=== PATIENT | female | born 1980 | race Caucasian/White ===

== ENCOUNTER → 2020-08-16 10:55 | Outpatient (BNVA) | payer MEDICAID, SELFPAY | PROVIDERS: PCP Nurse Practitioner Family; Referring Provider Nurse Practitioner Family; Visit Provider Surgery | DX: D17.24 Benign lipomatous neoplasm of skin and subcutaneous tissue of left leg (principal) | CPT/HCPCS: 99212 ==

== ENCOUNTER 2020-08-22 10:30 | Outpatient (REF) | payer MEDICAID, SELFPAY ==
[2020-08-22 10:38] VITALS: BP 133/76; PULSE 84; RESP 16; TEMP 36.2; O2SAT 99
[2020-08-22 10:39] VITALS: BMI 40.2
--- NOTE | 2020-08-22 11:12 | PM.OP ---
Brief Operative Note Date of Service: 08/22/20 Pre-op diagnosis: Lipoma posterior left leg Post-op diagnosis: same Procedure: Excision of lipoma left leg Surgeon: Eric Aguiar MD Anesthesia: local Estimated blood loss (mL): 1 Pathology: other (lipoma posterior left leg) Condition: stable Disposition: other (home)
[2020-08-22 12:45] VITALS: BP 130/81; PULSE 82; RESP 16; O2SAT 99
--- NOTE | 2020-08-26 23:15 | W.PM.OPN ---
Operative Note Operative Note Date of Service: 08/22/20 Narrative: Preoperative diagnose: Lipoma posterior left thigh Postop diagnosis: same Procedure: Excision of lipoma posterior left thigh Surgeon: Eric Aguiar MD Anesthesia: Local Findings: 2 cm lipoma structure in the posterior left thigh Specimen: Lipoma left thigh Complications: None Estimated blood loss: 1 mL Procedure details: Patient was brought to the minor surgery suite placed in a prone position. The site of surgery was confirmed in the left posterior thigh and informed consent was assured. The skin was prepped with Betadine and draped in sterile fashion. Local anesthesia consisting of lidocaine 1% was infiltrated around the lesion in the posterior left thigh. Elliptical incision was made around the skin lesion the lesion excised down into the subcutaneous tissue. Hemostasis was maintained using light pressure. Skin was then closed using interrupted 4-0 nylon sutures. Sterile dressings consisting 3 x 3 gauze and paper tape was then applied. The patient tolerated the procedure well was discharged to home stable condition.
== END 2020-08-22 10:31 | disposition home or self-care (01) ==
LOC: HO.MS 10:30
PROVIDERS: PCP Nurse Practitioner Family; Visit Provider Surgery
PROC: (CPT 11402; principal; 2020-08-22 11:00)
DX: D17.24 Benign lipomatous neoplasm of skin and subcutaneous tissue of left leg (principal); I10 Essential (primary) hypertension; R73.03 Prediabetes; Z79.899 Other long term (current) drug therapy
CPT/HCPCS: 11402; 88304

== ENCOUNTER → 2020-08-29 14:26 | Outpatient (BNVA) | payer MEDICAID, SELFPAY | PROVIDERS: PCP Nurse Practitioner Family; Referring Provider Nurse Practitioner Family; Visit Provider Surgery | DX: Z09 Encounter for follow-up examination after completed treatment for conditions other than malignant neoplasm (principal) | CPT/HCPCS: 99212 ==

== ENCOUNTER 2022-07-01 13:41 | Outpatient (REF) | payer MEDICAID, SELFPAY ==
--- NOTE | ~2022-07-01 | MM_ITS ---
EXAMINATION: MM DIAGNOSTIC DIGITAL BREAST TOMOSYNTHESIS, BILATERAL US DIAGNOSTIC ULTRASOUND BREAST, BILATERAL CLINICAL INFORMATION: Due for yearly. Patient notes chronic bilateral round nipple discharge, drops with squeezing. No spontaneous discharge. No palpable mass. No known family history breast cancer. The lifetime risk of breast cancer based on the Tyrer-Cuzick Model is 7%. COMPARISON: Baseline diagnostic mammography with bilateral ultrasound 03/13/2020. TECHNIQUE: Digital breast tomosynthesis is performed in both the craniocaudal and mediolateral oblique views along with computer-aided detection (CAD). Synthesized 2D images are generated from the tomosynthesis. Ultrasound of each breast is performed using grayscale imaging and color Doppler without and with harmonics. Bilateral retroareolar and periareolar imaging is performed. Additional imaging posterior inferior left breast also performed. FINDINGS: There are scattered areas of fibroglandular density (ACR BI-RADS breast composition Category b). Breast tissue composition borders on heterogeneously dense. Parenchymal pattern is similar to prior exam. There is no significant mass or architectural abnormality. There are scattered stable fine round calcifications similar in number and distribution. The axilla and skin contours are unremarkable. There is no interval duct ectasia. Left breast has macrolobulated nodule posterior central 6:00 position slightly more prominent when compared with prior study. Ultrasound bilateral retroareolar and periareolar region show no cystic or solid mass or architectural abnormality. No focal duct ectasia. No skin thickening or edema tracking in soft tissue planes. Additional ultrasound posterior inferior left breast demonstrates grouping of simple cyst at site of macrolobulated nodularity with overall size approximately 1.5 x 0.6 x 0.9 cm. There is increased through-transmission of sound noted during real-time imaging. No associated color flow. Results are discussed with the patient at time of visit. MM/MM tomosynthesis diagnostic BI IMPRESSION: -No mammographic or ultrasound evidence of malignancy. -Benign grouped simple cysts posterior central left breast, 1.5 cm. ASSESSMENT: BI-RADS 2: Benign RECOMMENDATION: 1. Patient's bilateral chronic brown nipple discharge with squeezing should be managed based on the clinical impression. Consider laboratories for possible systemic hormonal etiology. 2. Otherwise, routine annual screening mammography. This patient's information was entered into a reminder system with a target due date for their next mammogram.
== END 2022-07-01 13:42 | disposition home or self-care (01) ==
LOC: HO.MAMMO 13:41
PROVIDERS: PCP Registered Nurse Community Health; Visit Provider Registered Nurse Community Health
DX: N64.52 Nipple discharge (principal)
CPT/HCPCS: 76642; 77062; 77066

== ENCOUNTER 2024-04-10 14:37 | Outpatient (REF) | payer MEDICAID, SELFPAY ==
[2024-04-12 19:18] LABS: TS Negative Control Passed; TS Panel A 1; TS Panel B 0; TS Positive Control Passed; TSpotTB Negative (Negative)
== END 2024-04-10 14:38 | disposition home or self-care (01) ==
LOC: HO.HHCL 14:37
PROVIDERS: Visit Provider Nurse Practitioner Family
DX: Z00.00 Encounter for general adult medical examination without abnormal findings (principal)
CPT/HCPCS: 36415; 86481

== ENCOUNTER 2024-09-29 15:19 | Outpatient (REF) | payer SELFPAY ==
[2024-09-29 16:24] LABS: Anion Gap 12 (12-20); Blood Urea Nitrogen 11 mg/dL (9-16); Calcium 9.1 mg/dL (8.4-10.2); Carbon Dioxide 29 mmol/L (22-29); Chloride 101 mmol/L (96-108); Estimated Glomerular Filt Rate > 60; Glucose Random 100 mg/dL (60-115); Potassium 3.3 mmol/L (3.3-5.1); Sodium 139 mmol/L (135-145)
== END 2024-09-29 15:20 | disposition home or self-care (01) ==
LOC: HO.HHCL 15:19
PROVIDERS: Visit Provider Nurse Practitioner
DX: I10 Essential (primary) hypertension (principal)
CPT/HCPCS: 36415; 80048

== ENCOUNTER 2025-06-04 12:11 | Outpatient (REF) | payer MEDICAID, SELFPAY ==
--- OUTSIDE RECORDS SUMMARY | 2025-06-04 13:30 | XMS_ITS | Encounter Summary ---
Author Organization [employer] Address [address] [place] [id number] Care Team Providers Care Bakery Technician Name Role Phone Maria Elena Howard Primary Care Provider [phone] Suzy Guillen NP Primary Care Provider [phone] Reason for Visit * Reason Onset Date Comments Appointment Request 04/28/2024 Encounter Details Date Type Department Care Team ([facility] st Contact Info) Description 04/28/2024 Telephone [facility] [address], [place] [phone] Maria Elena Howard FNP [address], [place] [phone] Appointment Request Social History Tobacco Use Types Packs/Day Years Used Date Smoking Tobacco: Never Passive Smoke Exposure: Never Smokeless Tobacco: Never Alcohol Use Standard Drinks/Week Comments Not Currently 0 (1 standard drink = 0.6 oz pur e alcohol) Depression Answer Date Recorded Patient Health Questionnaire-9 Score 2 01/26/2024 Patient Health Questionnaire-9 Score 2 01/26/2024 Last PHQ-9: Questionnaire Data Not on file 0 01/26/2024 Housing Stability Answer Date Recorded What is your housing situation today? I have tyler reid 01/18/[address] you li ve. Do you have problems with any of the following? None of the above 01/18/2024 Food Insecurity Answer Date Recorded Within the past 12 months, y ou worried that your food would run out before you got money to buy more: Never True 01/18/2024 Within the past 12 months,th e food you bought just didn't last and you didn't have enough money to get more: Never True 06/2024 Transportation Answer Date Recorded In the past 12 months, has l ack of transportation kept you from medical appts, meetings, work or from getting things needed for daily living? No 01/18/2024 Utilities Answer Date Recorded In the past 12 months, has t he electric, gas, oil or water company threatened to shut off services in your home? No 01/18/2024 Depression Answer Date Recorded Patient Health Questionnaire-2 Score 0 01/26/2024 Comments No Sex and Gender Information Value Date Recorded Sex Assigned at Female 08/10/2022 10:14 AM EDT Legal Sex Female 10:14 AM EDT Gender Identity Female 08/10/2022 10:14 AM EDT Sexual Orientation Straight 08/10/2022 10 :14 AM EDT documented as of this encounter Miscellaneous Notes * Telephone Encounter - Lonny Goldberg - 04/28/2024 4:16 PM EDT Tc from pt is requesting to reschedule PE for work 05/05. [employer] Professional attempted to schedule but found no availability. If any questions please contact pt at [phone]. Syriac Speaker. documented in this encounter Plan of Treatment Upcoming Encounters Date Type Department Care Team (Late st Contact Info) Description 07/20/2025 10:15 AM EDT Office Visit [facility] [address] [place] [address] Suzy Guillen NP [address] [place] [address] documented as of this encounter Visit Diagnoses Not on filedocumented in this encounter Additional Health Concerns Assessment Noted Time PHQ-9 Depression Total Score: 2 01/26/20 24 3:57 PM EDT documented as of this encounter Care Teams Bakery Technician Relationship Specialty Start Date End Date Maria Elena Howard FNP [address] [place] [address] PCP - General Family Medicine 07/28/22 06/13/24 Suzy Guillen NP [address] [place] [id number] PCP - General Family Medicine 06/14/24 documented as of this encounter
--- OUTSIDE RECORDS SUMMARY | 2025-06-04 13:30 | XMS_ITS | Clinical Summary ---
Author Organization [facility] [place] [address] Phone Care Team Providers Care Weigher Bulker Name Role Phone Physician, Pcp Unknown Primary Care Provider Mary vailable Allergies No known active allergies Medications benzonatate (TESSALON) 100 mg capsule Take 1 capsule (100 mg total) by mouth 3 (three) times a day if needed for cough. Do not crush or chew. 12 capsule 10/16/2024 Active guaiFENesin (MUCINEX) 600 mg 12 hr tablet Take 2 tablets (1,200 mg total) by mouth 2 (two) times a day. Do not crush, chew, or split. 16 each 10/16/2024 Active Active Problems No known active problems Medical History Medical History Date Comments Hypertension Diabetes mellitus ([facility] V24, [facility] V28) Social History Tobacco Use Types Packs/Day Years Used Date Smoking Tobacco: Never Assessed Comments Unknown Sex and Gender Information Value Date Recorded Sex Assigned at Not on file Legal Sex Female 3:58 AM EST Gender Identity Not on file Sexual Orientation Not on file Obstetrics History Last Filed Vital Signs Vital Sign Reading Time Taken Comments Blood Pressure 126/83 10/15/2024 9:09 PM EST Pulse 107 10/15/2024 9:09 PM EST Temperature 37.5 C (99.5 F) 10/15/2024 9:09 PM EST Respiratory Rate 18 10/15/2024 9:09 PM EST Oxygen Saturation 95% 10/15/2024 9:09 PM EST Inhaled Oxygen Concentration - - Weight 102 kg (225 lb) 10/15/2024 2:57 PM EST Height 157.5 cm (5' 2 ) 10/15/2024 2:57 PM EST Body Mass Index 41.15 10/15/2024 2:57 PM EST Plan of Treatment Health Maintenance Due Date Last Done Comments IPV Vaccines (5 of 5 - 5-dose series) 1983 04/05/1981, 04/03/1981, 01/27/1980, Additional history exists Pneumococcal Vaccine: Pediatrics (0 to 5 Years) and At-Risk Patients (6 to 49 Years) (1 of 2 - PCV) 1998 Cervical Cancer Screening: Pap Smear 2000 Hepatitis B Vaccines (3 of 3 - 3-dose series) 09/24/2000 07/30/2000, 09/23/1998, 08/30/1997 Colorectal Cancer Screening: Colonoscopy 09/13/2022 HIV Screening 09/13/2022 Hepatitis C Screening 09/13/2022 Social Influencers of Health Screening 09/13/2022 DTaP,Tdap,and Td Vaccines (9 - Td or Tdap) 11/15/2022 11/15/2012, 04/29/2006, 06/26/1996, Additional history exists COVID-19 Vaccine ( season) 2024 02/05/2021, 01/08/2021 Breast Cancer Screening 07/01/2024 07/01/2022 Depression Screening 10/11/2024 Influenza Vaccine (#1) 2025 , 08/07/2022, 12/11/2019, Additional history exists Hypertension/CHF/CAD Annual BMP Blood Test 10/15/2025 10/15/2024, 09/29/2024 Cholesterol Screening (Lipid Panel) 01/06/2028 01/05/2023 MMR Vaccines Completed 12/10/1992, 08/24/1980 HIB Vaccines Aged Out No longer eligi ble based on patient's age to complete this topic HPV Vaccines Aged Out No longer eligi ble based on patient's age to complete this topic Hepatitis A Vaccines Aged Out No long er eligible based on patient's age to complete this topic Meningococcal ACWY Vaccine Aged Out N o longer eligible based on patient's age to complete this topic Meningococcal B Vaccine Aged Out No l onger eligible based on patient's age to complete this topic RSV Immunization Patients Under 20 months Aged Out No longer eligible based on patient's age to complete this topic Varicella Vaccines Aged Out No longer eligible based on patient's age to complete this topic Procedures Procedure Name Priority Date/Time Associated Diagnosis Comments COMPREHENSIVE METABOLIC PANEL STAT 10/15/2024 2:52 PM EST from Last 3 Months or Most Recently Relevant to Health Maintenance Results * (ABNORMAL) Comprehensive metabolic panel (10/15/2024 2:52 PM EST) Sodium 136 133 - 145 mmol/L LAB CHEMISTRY METHOD 10/15/2024 3:[address] [facility] Potassium 3.9 3.5 - 5.5 mmol/L LAB CHEMISTRY METHOD 10/15/2024 3:[address] [facility] Chloride 102 96 - 110 mmol/L LAB CHEMISTRY METHOD 10/15/2024 3:[address] [facility] CO2 28 21 - 32 mmol/L LAB CHEMISTRY METHOD 10/15/2024 3:[address] [facility] Anion Gap 6 3 - 11 LAB CHEMISTRY METHOD 10/15/2024 3:[address] [facility] Glucose 105(H) 70 - 100 mg/dL LAB CHEMISTRY METHOD 10/15/2024 3:[address] [facility] BUN 8 5 - 25 mg/dL LAB CHEMISTRY METHOD 10/15/2024 3:[address] [facility] Creatinine 0.62 0.50 - 1.10 mg/dL LAB CHEMISTRY METHOD 10/15/2024 3:[address] [facility] eGFR 112 >=60 mL/min/1. 73m2 LAB CHEMISTRY METHOD 10/15/2024 3:[address] [facility] Comment:Calculation based on the Chronic Kidney Disease Epidemiology Collaboration (CKD-EPI) equation refit without adjustment for race. BUN/Creatinine Ratio 12.9 LAB CHEMISTRY METHOD 10/15/2024 3:[address] [facility] Calcium 9.4 8.5 - 10.5 mg/dL LAB CHEMISTRY METHOD 10/15/2024 3:[address] [facility] AST (SGOT) 22 10 - 42 unit/L LAB CHEMISTRY METHOD 10/15/2024 3:[address] [facility] ALT (SGPT) 35 10 - 60 unit/L LAB CHEMISTRY METHOD 10/15/2024 3:[address] [facility] Alkaline Phosphatase 106 42 - 121 unit/L LAB CHEMISTRY METHOD 10/15/2024 3:[address] [facility] Total Protein 7.3 6.0 - 8.0 g/dL LAB CHEMISTRY METHOD 10/15/2024 3:[address] [facility] Albumin 3.5 3.2 - 5.0 g/dL LAB CHEMISTRY METHOD 10/15/2024 3:[address] [facility] Total Bilirubin 0.2 0.0 - 1.4 mg/dL LAB CHEMISTRY METHOD 10/15/2024 3:[address] [facility] Blood Venous blood specimen / Unknown Venipuncture / Unknown 10/15/2024 2:52 PM EST 10/15/2024 3:16 PM EST us Umang Chavez MD LAB BLOOD ORDERABLES Final Res ult [facility] [address] [place] [address], from Last 3 Months or Most Recently Relevant to Health Maintenance Insurance MEDICAID - [place] Care Teams Weigher Bulker Relationship Specialty Start Date End Date Physician, Pcp Unknown PCP - General 10/16/24
[2025-06-04 14:09] LABS: Hemoglobin A1C 142.9520 umol/L; Total Hemoglobin (HGBA1C) 3274.1605 umol/L
[2025-06-04 14:20] LABS: Cholesterol 198 mg/dL (<200); HDL Cholesterol 64 mg/dL (>40); Triglycerides 114 mg/dL (<150)
[2025-06-04 14:29] LABS: HBS Num1 6.25 mIU/mL (0-7.99); HBc Num1 0.19 S/CO (0.00-0.79); HBsAGNum1 0.42 S/CO (0.00-0.99); HIV Num 1 0.08 S/CO (0.00-0.99); Hepatitis A Antibody IgM 0.11 Index (0-0.79); Hepatitis B Surface Antigen Negative (Negative); ~HepC Num1 0.18 S/CO (0.00-0.79); ~Hepatitis A Antibody IgM Nonreactive (Nonreactive); ~Hepatitis B Surface Antibody NONREACTIVE (Nonreactive); ~Hepatitis C Antibody Nonreactive (Nonreactive)
== END 2025-06-04 12:12 | disposition home or self-care (01) ==
LOC: HO.HHCL 12:11
PROVIDERS: PCP Nurse Practitioner Primary Care; Visit Provider Nurse Practitioner Primary Care
DX: Z00.00 Encounter for general adult medical examination without abnormal findings (principal); Z11.3 Encounter for screening for infections with a predominantly sexual mode of transmission; Z11.4 Encounter for screening for human immunodeficiency virus [HIV]; Z11.59 Encounter for screening for other viral diseases; R73.03 Prediabetes
CPT/HCPCS: 36415; 80061; 83036; 86592; 86704; 86706; 86709; 86803; 87340; 87389